=== PATIENT | female | born 2000 | race Caucasian/White ===

== ENCOUNTER 2023-01-29 05:05 | Emergency (ER) | payer OTHER ==
[~2023-01-29] VITALS: Ht 165.1 cm; Wt 56.0 kg
[2023-01-29 05:22] VITALS: BP 121/77
== END 2023-01-29 11:28 | disposition left against medical advice (07) ==
LOC: ER 05:05
DX: Z53.21 Procedure and treatment not carried out due to patient leaving prior to being seen by health care provider (principal); R30.0 Dysuria; R31.0 Gross hematuria
CPT/HCPCS: 99281